=== PATIENT | female | born 1965 | race Caucasian/White ===

== ENCOUNTER 2018-12-07 12:03 | Emergency (ER) | payer SELFPAY ==
--- NOTE | 2018-12-07 13:28 | RAD ---
RIGHT KNEE 4 VIEWS: Date: 12/07/18 HISTORY: Pain. COMPARISON: None. FINDINGS: No joint effusion. Joint spaces are preserved. No fracture or malalignment. IMPRESSION: Unremarkable 4 views right knee. POS: [facility]
== END 2018-12-07 13:23 | disposition home or self-care (01) ==
LOC: SCSER 12:03
DX: S16.1XXA Strain of muscle, fascia and tendon at neck level, initial encounter (principal); S80.01XA Contusion of right knee, initial encounter; F17.210 Nicotine dependence, cigarettes, uncomplicated; I10 Essential (primary) hypertension; F32.9 Major depressive disorder, single episode, unspecified; V89.2XXA Person injured in unspecified motor-vehicle accident, traffic, initial encounter